=== PATIENT | female | born 1930 | race Caucasian/White ===

== ENCOUNTER 2018-12-27 23:35 | Emergency (ER) | payer MEDICARE ==
--- NOTE | 2018-12-28 01:14 | ER Document Report ---
ED General - General Chief Complaint: Skin Tear(s) Stated Complaint: FALL Time Seen by Provider: 12/28/18 01:13 Primary Care Provider: MARCI GUPTA DO [NO LOCAL MD] - Follow up in 3-5 days (local primary care. ) Notes: Patient is a 87-year-old female that presents to the emergency department for chief complaint of right arm skin tear. Patient states she has been moving boxes, and she slipped and injured her right arm, this occurred around 7 PM this evening, she had a friend dressed that, but because it was more openly advised that she come to the emergency department to have it checked out. She thinks she may have cut it on a vacuum bell cleaner, she is not sure of her tetanus status. She denies any significant pain. Denies any head injury, or neck injury from her fall. She has been ambulatory and has no other complaints at this time. Past Medical History: Denies chronic medical conditions Past Surgical History: Denies any recent or pertinent surgical history Social History: Denies tobacco, alcohol or drug use. Lives at home. Family History: Reviewed and noncontributory for presenting illness Allergies: Reviewed, see documented allergy list. REVIEW OF SYSTEMS: Other than noted above, the 12 point review of systems was reviewed with the patient and were negative, all pertinent findings are included in the HPI. PHYSICAL EXAMINATION: Vital signs reviewed, nursing noted reviewed. GENERAL: Well-appearing, well-nourished and in no acute distress. HEAD: Atraumatic, normocephalic. EYES: Eyes appear normal, sclera anicteric, conjunctiva are normal. ENT: Moist mucous membranes. NECK: Normal range of motion, supple without lymphadenopathy LUNGS: Breath sounds clear to auscultation bilaterally and equal. No wheezes rales or rhonchi. HEART: Regular rate and rhythm without murmurs EXTREMITIES: The right forearm, has a long superficial skin tear, at approximately 7 cm in length, irregular pattern, no flap noted. There is no tenderness to palpation of this area, no gross deformity. The rest the patient's extremity exam is grossly unremarkable. NEUROLOGICAL: No focal neurological deficits. Moves all extremities spontaneously Motor and sensory grossly intact on exam. PSYCH: Normal mood, normal affect. SKIN: Warm, Dry, normal turgor, no rashes or lesions noted on exposed skin TRAVEL OUTSIDE OF THE [place] IN LAST 30 DAYS: No - Related Data Allergies/Adverse Reactions: Penicillins Allergy (Verified 12/28/18 00:47) Past Medical History - Social History Smoking Status: Never Smoker Family History: Reviewed & Not Pertinent Patient has suicidal ideation: No Patient has homicidal ideation: No Past Surgical History: Reports: Hx Appendectomy, Hx Cholecystectomy, Hx Hysterectomy Physical Exam - Vital signs Vitals: Temp Pulse Resp BP Pulse Ox 98.0 F 52 L 18 124/72 96 12/27/18 23:40 12/27/18 23:40 12/27/18 23:40 12/27/18 23:40 12/27/18 23:40 Course - Re-evaluation Re-evalutation: Patient's wound appeared clean on exam, it was approximated with Steri-Strips and benzoin, she was updated on her tetanus. No further imaging or blood work needed. Advised to monitor for signs of infection, and to return to the emergency department if she had any further concerns. Patient otherwise appeared well, and was discharged to home. Agreed with plan of care. - Vital Signs Vital signs: Temp Pulse Resp BP Pulse Ox 97.6 F 51 L 16 150/76 H 94 12/28/18 02:05 12/28/18 02:05 12/28/18 02:05 12/28/18 02:05 12/28/18 02:05 Procedures - Laceration/Wound Repair Right Arm Wound length (cm): 7 Wound's Depth, Shape: Superficial Wound explored: Clean Wound Repaired With: Steri-strips Discharge - Discharge Clinical Impression: Skin tear of right forearm without complication Qualifiers: Encounter type: initial encounter Qualified Code(s): S51.811A - Laceration without foreign body of right forearm, initial encounter Condition: Stable Disposition: HOME, SELF-CARE Instructions: Care of Steri-Strip Closure ([facility]) Additional Instructions: Please monitor for any signs of infection such as streaking up your arm or pus drainage, from the wound, the Steri-Strips should fall off within a week to 10 days, please follow-up with the primary care physician, if you have any concerns about infection, please return to the emergency department to be evaluated. Referrals: MARCI GUPTA DO [NO LOCAL MD] - Follow up in 3-5 days (local primary care. )
[2018-12-28] MEDS ORDERED: DIPH/PERTUSS(ACELL)/TETANUS VAC/PF 0.5 ML SYR (>=10YO) IM ONE (01:34)
[2018-12-28 02:07] VITALS: BP 150/76
== END 2018-12-28 02:05 | disposition home or self-care (01) ==
LOC: ER 23:35
DX: S51.811A Laceration without foreign body of right forearm, initial encounter (principal); Z23 Encounter for immunization; W01.0XXA Fall on same level from slipping, tripping and stumbling without subsequent striking against object, initial encounter; Z90.49 Acquired absence of other specified parts of digestive tract; Z90.710 Acquired absence of both cervix and uterus; Z88.0 Allergy status to penicillin
CPT/HCPCS: 90471; 90715; 99283